=== PATIENT | female | born 1985 | race Caucasian/White ===

== ENCOUNTER → 2018-03-22 17:55 | Outpatient (CLI) | payer SELFPAY ==
[2018-03-22 18:59] LABS: Group B Strep DNA By PCR Negative (Negative); Internal Control PASS; Probe Check PASS; Specimen Processing Control PASS
== END ==
PROVIDERS: Visit Provider Obstetrics & Gynecology
DX: Z36.85 Encounter for antenatal screening for Streptococcus B (principal)
CPT/HCPCS: 87081; 87653

== ENCOUNTER 2018-04-13 06:50 | Inpatient (IN) | payer SELFPAY ==
[2018-04-13 06:56] VITALS: BMI 27.3
[2018-04-13] MEDS: Lactated Ringers 1,000 ML 50 ML IV (07:30)
[2018-04-13] MEDS: Oxytocin 30 units/NS 500 ml 30 UNITS/500 ML IV.SOLN IV (07:40)
[2018-04-13 07:47] LABS: Hematocrit 29.3 % (37-47); Hemoglobin 9.5 g/dl (12.0-15.0); Mean Corp Hgb Conc 32.4 g/gl (32-36); Mean Corpuscular Hgb 26.8 pg (27.0-32.0); Mean Corpuscular Volume 82.8 fL (81-99); Mean Platelet Vol. 10.2 fl (6.2-12.0); Platelet Count 217 K/mm3 (150-450); RBC Distribution Width CV 13.9 % (11.6-14.6); RBC Distribution Width SD 42.1 fl (35.1-43.9); Red Blood Count 3.54 M/mm3 (4.2-5.4); White Blood Count 10.4 K/mm3 (4.4-11.0)
[2018-04-13 07:51] LABS: Scan Indicated on CBC? Y/N NO
[2018-04-13] MEDS: Acetaminophen 325 MG Tablet PO (12:09)
[2018-04-13] MEDS: Oxytocin 30 units/NS 500 ml 30 UNITS/500 ML IV.SOLN 334 UNITS IV (12:40)
--- NOTE | 2018-04-13 12:53 | PCM.OB.VAG ---
Vaginal Delivery Maternal Presentation: Elective Induction Method of Induction: Pitocin, Amniotomy Amniotic Membrane Rupture Type: Artificial Amniotic Fluid Description: Clear Final CRISTAL: 04/16/18 Final CRISTAL Source: US <20 weeks Gestational age: 39 Weeks and 4 Days Date of Procedure: 04/13/18 Pre-Operative Diagnosis: IUP Post-Operative Diagnosis: IUP Surgery/ Procedure Performed: Spontaneous Vaginal Delivery Type of Anesthesia: None Description of Procedure: Spontaneous vaginal delivery of a viable female with Apgars of 9/9 from an occiput anterior presentation with normal three-vessel placenta and clear amniotic fluid. No episiotomy or laceration. Single 3-0 Rapide suture stitch placed in 0.25 cm perineal abrasion. Sponge counts okay. Delivery physician: Khai Johnson MD. Presentation: Vertex Placental Delivery Description: Spontaneous Placenta Disposition: [facility] Cord Vessel Description: 3 Vessels Cord Entanglement: None Estimated Blood Loss: 250 cc A gender: Female (1 minute): 9 (5 minute): 9 Episiotomy Description: None Laceration: None Medications given after delivery: IV Pitocin Complications: None
--- NOTE | 2018-04-13 12:57 | PCM.DCVAG ---
Discharge Diet: No Restrictions Discharge Activity: May Shower, May Take a Tub Bath May resume sexual activity in: 4-6 weeks Additional Activity Instructions:: Nothing in the vagina for 4-6 weeks. You may return to work/school in 6 weeks. Call your doctor if you observe: Fever of 101 or Higher, Inability to urinate, Inability to have a bowel movement, Using more than one pad per hour Additional Instructions: If you experience any of the following, contact your healthcare provider. Bleeding that soaks a pad every hour for 2 hours Unrelieved incision or abdominal pain Swelling, redness, discharge or bleeding from your incision or episiotomy site Your incision begins to separate Problems urinating (including inability to urinate or burning while urinating). Visual changes Severe headache Flu-like symptoms Pain or redness in one of both of your breasts Pain, warmth, tenderness or swelling in your legs, especially the calf area Frequent nausea and vomiting Symptoms of depression or anxiety If you experience any of the following, call 911 or go to the nearest Emergency Room. Chest pain Problems breathing Seizure activity Partial or complete paralysis of a body part, slurred speech, weakness or drooping of the face, or a sudden inability to walk or hold your balance Allergies/Adverse Reactions: Allergies No Known Allergies Allergy (Verified 09/18/13 10:14) Medications to take at Discharge Vits [Prenatabs FA ] 1 tab PO DAILY 09/18/13 Please Follow Up With: Khai Johnson MD - [phone] When: Call to make an appointment with your doctor in 6 weeks. Primary Care Physician: Scottie Luo MD [Primary Care Provider] -
--- NOTE | 2018-04-13 12:58 | DCINST_ITS ---
Discharge Diet: No Restrictions Discharge Activity: May Shower, May Take a Tub Bath May resume sexual activity in: 4-6 weeks Additional Activity Instructions:: Nothing in the vagina for 4-6 weeks. You may return to work/school in 6 weeks. Call your doctor if you observe: Fever of 101 or Higher, Inability to urinate, Inability to have a bowel movement, Using more than one pad per hour Additional Instructions: If you experience any of the following, contact your healthcare provider. * Bleeding that soaks a pad every hour for 2 hours * Unrelieved incision or abdominal pain * Swelling, redness, discharge or bleeding from your incision or episiotomy site * Your incision begins to separate * Problems urinating (including inability to urinate or burning while urinating) . * Visual changes * Severe headache * Flu-like symptoms * Pain or redness in one of both of your breasts * Pain, warmth, tenderness or swelling in your legs, especially the calf area * Frequent nausea and vomiting * Symptoms of depression or anxiety If you experience any of the following, call 911 or go to the nearest Emergency Room. * Chest pain * Problems breathing * Seizure activity * Partial or complete paralysis of a body part, slurred speech, weakness or drooping of the face, or a sudden inability to walk or hold your balance Allergies/Adverse Reactions: Allergies No Known Allergies Allergy (Verified 09/18/13 10:14) Medications to take at Discharge Vits [Prenatabs FA ] 1 tab PO DAILY 09/18/13 Please Follow Up With: Khai Johnson MD - [phone] When: Call to make an appointment with your doctor in 6 weeks. Primary Care Physician: Scottie Luo MD [Primary Care Provider] -
[2018-04-13] MEDS: Oxytocin 30 units/NS 500 ml 30 UNITS/500 ML IV.SOLN 167 UNITS IV (13:10)
[2018-04-13 17:11] VITALS: BP 108/62; PULSE 70; RESP 18; TEMP 37.3
[2018-04-13] MEDS: Ibuprofen 600 MG Tablet PO (18:39)
[2018-04-13 20:00] VITALS: BP 118/76; PULSE 72; RESP 16; TEMP 37.1
[2018-04-13] MEDS: Acetaminophen 500 MG Tablet 1000 MG PO (22:41)
[2018-04-13 22:57] VITALS: BP 107/68; PULSE 68; RESP 16; TEMP 37.2
[2018-04-14] MEDS: Ibuprofen 600 MG Tablet PO ×2 (01:12→07:00)
[2018-04-14 03:05] VITALS: BP 115/56; PULSE 64; RESP 16; TEMP 37
[2018-04-14 08:00] VITALS: BP 118/71; PULSE 67; RESP 16; TEMP 37.1
--- NOTE | 2018-04-14 09:05 | PCM.PN.OB ---
Subjective: Patient without complaints. Breast-feeding going well. Wants to go home today. - Physical Exam Vital Signs AF, VSS Temp Pulse Resp BP 98.7 F 67 16 118/71 04/14/18 08:00 04/14/18 08:00 04/14/18 08:00 04/14/18 08:00 Oxygen Delivery Method Room Air Weight: 174 lb 9.698 oz Body Mass Index (BMI) 27.3 Intake and Output for Last 24 Hours 04/12/18 04/13/18 04/14/18 23:59 23:59 23:59 Intake Total 750 / 750 Output Total 1075 / 1075 Balance -325 / -325 Laboratory Tests Past 24 Hrs 04/13/18 07:30 Blood Type A POSITIVE Antibody Screen NEGATIVE Medical Necessity - Tobacco Use Smoking Status: Never smoker Assessment/Plan day #1. Doing well. Will release to home with routine instructions.
[2018-04-14 12:30] VITALS: BP 120/70; PULSE 74; RESP 20; TEMP 36.8
[2018-04-14 16:15] VITALS: BP 121/66; PULSE 70; RESP 18; TEMP 37; O2SAT 100
== END 2018-04-14 16:30 | disposition home or self-care (01) | DRG 775 ==
PROVIDERS: Admitting Provider Obstetrics & Gynecology; Family Provider Family Medicine; PCP Family Medicine; Visit Provider Obstetrics & Gynecology
DX: O75.89 Other specified complications of labor and delivery (principal); S30.814A Abrasion of vagina and vulva, initial encounter; Z37.0 Single live birth; Z3A.39 39 weeks gestation of pregnancy
CPT/HCPCS: 59025; 59050; 85027; 86850; 86900; 99218; J7120; G0378

== ENCOUNTER → 2019-10-30 10:10 | Outpatient (CLI) | payer SELFPAY ==
[2019-11-02 16:31] LABS: HPV Reflexed? NOT INDICATED
== END ==
PROVIDERS: Family Provider Family Medicine; PCP Family Medicine; Referring Provider Obstetrics & Gynecology; Visit Provider Obstetrics & Gynecology
DX: Z12.4 Encounter for screening for malignant neoplasm of cervix (principal)
CPT/HCPCS: 88175; G0145

== ENCOUNTER 2022-11-22 09:13 | Day surgery (SDC) | payer SELFPAY, OTHER ==
[2022-11-16 16:41] LABS: Hematocrit 39.1 % (37-47); Mean Corp Hgb Conc 33.2 g/dL (32-36); Mean Corpuscular Hgb 30.2 pg (27.0-32.0); Mean Corpuscular Volume 90.7 fL (81-99); Mean Platelet Vol. 10.2 fl (6.2-12.0); Platelet Count 333 K/mm3 (150-450); RBC Distribution Width CV 11.9 % (11.6-14.6); RBC Distribution Width SD 39.8 fl (35.1-43.9); Red Blood Count 4.31 M/mm3 (4.2-5.4); White Blood Count 8.4 K/mm3 (4.4-11.0)
[2022-11-22 09:32] VITALS: BP 124/75; PULSE 71; RESP 18; TEMP 36.9; O2SAT 100; BMI 28.8
[2022-11-22 09:37] LABS: Internal QC Validated? YES +Cl - CLEAR BKGD; Pregnancy, Urine Negative Negative
[2022-11-22] MEDS: Lactated Ringers 1,000 ML 15 ML IV (09:37)
--- NOTE | 2022-11-22 09:49 | PCM.HP.BLA ---
History and Physical Date of Admission: 11/22/22 Chief complaint: Embedded IUD History of present illness: 37-year-old arrives for hysteroscopy, dilation curettage, removal of IUD possible laparoscopy for embedded IUD. Denies headache, visual changes, chest pain, shortness of breath, nausea vomit, right upper quadrant pain. Obstetric history: G3, P3 with a history of 3 vaginal deliveries Past medical history: Anxiety depression Medications: Zoloft Allergies: No known drug allergies Past surgical history: None Social history: Denies smoking, alcohol, drug Family history: Denies history DVT or PE Review of systems: Besides above pertinent positives a full review of systems was performed and found to be negative Physical exam: Vitals: Blood pressure 124/75 pulse 71 respiratory rate 18 temperature 98.5 ?F SPO2 1% on room air General: Normal-appearing no acute distress HEENT: Normocephalic atraumatic no cervical of adenopathy Cardiac/respiratory: No use accessory muscles, nonlabored breathing Abdomen: Soft, nontender, gravid Extremities: No peripheral edema normal peripheral pulses Psych: Normal affect normal demeanor nonpressured speech Labs: Urine test negative Assessment plan: 37-year-old for hysteroscopy, dilation curettage, removal IUD possible laparoscopy for embedded IUD. Patient understands risk of the procedure include but are not limited to visceral or vascular injury, prolonged hospitalization, blood loss need for transfusion, reoperation. Patient state understanding wish to proceed. All questions were answered and consent was signed.
[2022-11-22 11:10] VITALS: BP 113/69; BP 115/75; BP 124/75; PULSE 72; RESP 16; TEMP 37.3; O2SAT 96; O2SAT 98
--- NOTE | 2022-11-22 11:18 | DCINST_ITS ---
Discharge Instructions Diet Discharge Diet: No restrictions Activity Discharge Activity: Return to Normal Activity, May Drive and May Shower May resume sexual activity in: 4-6 weeks Weight Bearing Status: Weight bearing as tolerated Dressing / Incision Call your doctor if your incision/area has: Continuous Slow Oozing and Foul Smelling Discharge Call your doctor if you observe: Fever of 101 or Higher, Shortness of breath and Chest pain Follow Up Care Please Follow Up With: Earl Hunt MD When: 2 weeks postoperatively Test Results: Test results from this visit will be discussed in further detail at your follow- up appointment, if applicable. Discharge Plan Admission Attending Provider: Earl Hunt Primary Care Provider: Edda Newell Discharge Orders/Prescriptions Prescriptions: No Action calcium 600 mg Capsule 600 mg PO DAILY magnesium 100 mg Tablet 100 mg PO DAILY sertraline [Zoloft] 50 mg Tablet 50 mg PO DAILY Referrals / Follow Up: Edda Newell PA [Primary Care Provider] - Disposition Disposition (needs filled in before D/C Order can be placed): Home, Self Care
--- NOTE | 2022-11-22 11:19 | PCM.OPRPT ---
Report of Operation Date of Procedure: 11/22/22 Pre-Operative Diagnosis: Embedded IUD Post-Operative Diagnosis: Embedded IUD Surgery/Procedure Performed:: Hysteroscopy, removal of IUD Description of Surgical Findings:: Surgeon: Earl Hunt MD Anesthesia: MAC EBL: Minimal Urine output: 25 cc none IV fluids: 500 cc Complications: None Specimen: None Findings: IUD embedded right lateral portion of the uterus removed with operative hysteroscopy tools and Gracie. After IUD removal no other pathology noted no true defect in uterus. Consent: Patient arrives with embedded IUD elects for hysteroscopy, removal of IUD. Patient understands risk of the procedure include but are not limited to visceral or vascular injury, prolonged hospitalization, blood loss and need for transfusion, reoperation. Patient state understanding wish to proceed. All questions were answered and consent was signed. Procedure: Patient was brought back to the OR where MAC anesthesia was found to be adequate. Patient was prepared and draped in dorsolithotomy position with yellowfin stirrups. A weighted speculum is placed in the posterior aspect of the vagina and cervical dilators were used to dilate the cervix. Hysteroscope was inserted and above findings were noted. Using operative hysteroscopy forceps IUD device was guided out of its embedded position. Hysteroscope removed and Hamilton used to remove IUD by IUD strings. IUD removed. Hysteroscope inserted and good hemostasis was noted, above findings. Good hemostasis was noted. All counts were correct x2. Patient tolerated procedure well and was brought to recovery in a stable condition
[2022-11-22 11:20] VITALS: BP 110/74; BP 124/75; PULSE 63; RESP 16; O2SAT 98
[2022-11-22 11:25] VITALS: BP 114/73; BP 124/75; PULSE 69; RESP 16; TEMP 36.8; O2SAT 100
[2022-11-22 11:30] VITALS: BP 124/75
[2022-11-22] MEDS: Acetaminophen 500 MG Tablet 1000 MG PO (12:09)
== END 2022-11-22 12:52 | disposition home or self-care (01) ==
LOC: SDC 09:16 → AC 09:18
PROVIDERS: Anesthesiology; PCP Physician Assistant; Referring Provider Obstetrics & Gynecology; Visit Provider Obstetrics & Gynecology
PROC: 0UDB8ZZ Extraction of Endometrium, Via Natural or Artificial Opening Endoscopic (ICD-10-PCS; CPT 58558; principal; 2022-11-22 10:50)
DX: T83.39XA Other mechanical complication of intrauterine contraceptive device, initial encounter (principal); Y76.8 Miscellaneous obstetric and gynecological devices associated with adverse incidents, not elsewhere classified; F32.A Depression, unspecified; F41.9 Anxiety disorder, unspecified; Z79.899 Other long term (current) drug therapy
CPT/HCPCS: 58562; 00952; 36415; 81025; 85027; 86850; 86900; 86901; J7120; J2405

== ENCOUNTER → 2024-10-17 | Outpatient (CLI) | payer SELFPAY ==
[2024-10-25 14:07] LABS: HPV APTIMA, High Risk Negative (Negative)
== END | disposition home or self-care (01) ==
LOC: LABSPEC 09:04
PROVIDERS: PCP Physician Assistant; Referring Provider Nurse Practitioner Family; Visit Provider Nurse Practitioner Family
DX: Z12.4 Encounter for screening for malignant neoplasm of cervix (principal)
CPT/HCPCS: 87624; 88175; G0145